=== PATIENT | female | born 1940 | race Caucasian/White ===

== ENCOUNTER → 2017-12-07 | Outpatient (CLI) | payer OTHER ==
[~2017-12-07] MED LIST: ACCUNEB SO1.25 MG/1 INH; ADULT LOW DOSE81 MG PO; ADVAIR HFA115 MCG/21 INH; ALLOPURINOL 10100 M1 PO; ASPIR 8181 MG PO; ASPIRIN325 PO; ATIVAN0.5 MG PO; AVELOX 400 MG400 MG PO; BENADRYL25 MG PO; BLOOD GLUCOSE1 EAC2; CENTRUM SILVER1 EAC4 PO; COLACE100 MG PO; EFFEXOR XR75 MG PO; ERYTHROMYCIN250 MG PO; FEVERALL650 MG RECTAL; FLONASE; HYDROCODONE-AP1 EAC6 PO; I-CAPS AREDS S1 EACH PO; ICAPS TABLET1 EACH PO; INDOMETHACIN 2525 MG PO; LEVOTHYROXINE0.05 MG PO; LIPITOR10 MG PO; LOPRESSOR 50 MG50 M1 PO; LOPRESSOR50 PO; LOVASTATIN 20 M20 MG PO; MEDROLDOSEPACK PO; METAMUCIL PAC1 UDPKT PO; MEVACOR40 MG PO; MILK OF MA2400 MG/10 PO; MOBIC15 MG PO; NEURONTIN 300300 M1 PO; NORCO 5-325 TA1 EACH PO; OMEPRAZOLE20 M2 PO; OMEPRAZOLE20 MG PO; ONDANSETRON HCL4 M2 PO; OXYBUTYNIN 5 MG5 M1 PO; OXYBUTYNIN 5 MG5 M2 PO; PROAIR HFA8.5 GM; PROAIR HFA8.5 GM IH; ROBAXIN 750 MG750 MG PO; ROXICODONE5 M2 PO; SINGULAIR 10 MG10 M1 PO; SONATA10 MG PO; SPIRIVA INH; SYMBICORT160 MCG/4. INH; THERAGRAN-M PR1 EAC1 PO; TOPROL XL50 MG PO; TRAMADOL 50 MG50 MG PO; TRANSDERM-SCO1 PATC1 TD; TYLENOL325 MG PO; VENTOLIN HFA 1818 GM INH; VITAMIN D1000 UNI1 PO; VITAMIN D400 UNI1 PO; XARELTO10 MG PO
== END ==
LOC: M.MRI 10:13
DX: M47.817 Spondylosis without myelopathy or radiculopathy, lumbosacral region (principal); M48.061 Spinal stenosis, lumbar region without neurogenic claudication; M51.36 Other intervertebral disc degeneration, lumbar region; M51.37 Other intervertebral disc degeneration, lumbosacral region; M71.38 Other bursal cyst, other site; J43.1 Panlobular emphysema; I10 Essential (primary) hypertension; E03.9 Hypothyroidism, unspecified

== ENCOUNTER → 2017-12-26 | Outpatient (CLI) | payer OTHER ==
--- NOTE | 2017-12-27 07:27 | PAINCON ---
[address] [address] PAIN MANAGEMENT CONSULTATION Name: THANHHUMZA Aimee [id number] Admission: 12/26/17 Attend Phys: Zahraa Warren Discharge: Date of : 39 Report #: [id number] THIS REPORT FOR: //name// CC: Lester Roberts HISTORY OF PRESENT ILLNESS: The patient is a pleasant 77-year-old female. She was seen nearly a year ago in April of 2017 for symptomatic lumbar radiculopathy. Epidural injection at that time afforded excellent relief nearly 90% for several months, pain just gradually began to recur several months ago without antecedent trauma and overuse. Notes pain is primarily low back, left greater than right leg. Denies bowel or bladder continence changes. Does have slight decreased left leg strength. Positive straight leg raise is noted bilaterally. SOCIAL HISTORY: She does not use tobacco products. PHYSICAL EXAMINATION: GENERAL: Otherwise shows 5 feet 2 inches, 194 pounds female and BMI is 35.7 kilograms per meter squared. VITAL SIGNS: Blood pressure 146/63, pulse 50 and respirations 18. Subjective pain score is 8 on a VAS. MUSCULOSKELETAL: Rises from chair using armrest, modestly antalgic gait. Lumbar flexion is limited. Again, a slight decrease left leg strength to hip flexion, plantar flexion and lower extremity flexion. Positive straight leg raise bilaterally, left greater than right at 30 degrees. RADIOLOGICAL DATA: Reviewed diagnostic findings, she has a new MRI from 12/07/2017 (compared to prior study 12/08/2015 two years to the date). Does note progression of L3-L4 facet joint changes and facet hypertrophy, there is also a small disk extrusion at L4-L5, narrowing the canal to 8 mm, hypertrophic facet changes resulting in bilateral neural foraminal stenosis, left greater than right. All the findings are somewhat similar the disk protrusion is more prominent on this study. L5-S1 similarly notes hypertrophic facet changes. ASSESSMENT: Symptomatic lumbar radiculopathy by clinical exam and history secondary to spinal stenosis since the patient's symptoms have recurred without antecedent trauma, had good relief with an injection greater than a year ago. Reviewed diagnostic findings including MRI from earlier this month. RECOMMENDATIONS: 1. Epidural injection under fluoroscopy today. 2. Continue nonsteroidal anti-inflammatory agents. 3. Follow up in 4 weeks for reevaluation. Consideration for referral to physical therapy if indicated[place] [address] PAIN MANAGEMENT CONSULTATION Name: HUMZA LAW Aimee Room: [facility]#: [id number] Admission: 12/26/17 Attend Phys: Zahraa Warren Discharge: Date of : 39 Report #: [id number] PROCEDURE: Lumbar epidural injection under fluoroscopy. DESCRIPTION OF PROCEDURE NOTE: After both written and informed consent to include risk of spinal cord damage, increased pain, weakness and dural puncture, the patient was taken to the fluoroscopy suite, placed in the prone position. After sterile prep and drape, a skin wheal with lidocaine was raised. A 22-gauge epidural Tuohy needle was inserted in the midline at L4-L5 with good loss to resistance. Negative aspiration for cerebrospinal fluid or blood was noted. Then 1 mL of Omnipaque under biplanar fluoroscopy showed good spread within the epidural space. This was followed with 80 mg of triamcinolone plus 1 mL of 1.5% preservative-free Xylocaine, 0.5 mL Xylocaine was then injected to flush the needle; it was removed. The patient was monitored for an appropriate period of time and discharged in good and stable condition. <ELECTRONICALLY SIGNED> By: Chris Roberts DO 12/27/17 0727 1301 2020Vinkelechi Roberts DO /nt
== END | disposition home or self-care (01) ==
LOC: M.PC 05:04
DX: M54.16 Radiculopathy, lumbar region (principal); M48.061 Spinal stenosis, lumbar region without neurogenic claudication; Z98.890 Other specified postprocedural states; G89.29 Other chronic pain; Z88.8 Allergy status to other drugs, medicaments and biological substances; Z79.899 Other long term (current) drug therapy; Z79.82 Long term (current) use of aspirin

== ENCOUNTER → 2018-08-16 | Outpatient (CLI) | payer OTHER | LOC: M.NUC 08-07 10:55 | DX: K31.84 Gastroparesis (principal); D47.3 Essential (hemorrhagic) thrombocythemia; Z88.8 Allergy status to other drugs, medicaments and biological substances; Z88.5 Allergy status to narcotic agent; Z88.1 Allergy status to other antibiotic agents ==

== ENCOUNTER → 2018-09-05 | Outpatient (CLI) | payer OTHER | LOC: M.RAD 08:19 | DX: Z12.31 Encounter for screening mammogram for malignant neoplasm of breast (principal) ==

== ENCOUNTER → 2018-09-12 | Outpatient (CLI) | payer OTHER | LOC: M.RAD 09-09 10:48 | DX: N63.11 Unspecified lump in the right breast, upper outer quadrant (principal); N64.89 Other specified disorders of breast ==

== ENCOUNTER → 2018-09-17 | Outpatient (CLI) | payer OTHER ==
--- NOTE | 2018-09-24 12:05 | PATH ---
[address] [address] PATHOLOGY RPT PROCEDURE Name: HUMZA WHITLOCK Room: [facility] Romero#: [id number] Admission: 09/17/18 Date of : 39 Discharge: Report #: [id number] Path Case #: [id number] [facility] Accession Number: [id number] . 01 Material submitted: . RIGHT BREAST 10:00, 2 CMFN . 01 Clinical history: . 1.04 x 0.89 x 0.38, 10:00, 2 cm from nipple, right breast . 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 SEE COMMENT. (MARCO ANTONIO:pit 09/20/2018) QTP/09/20/2018 . 02 Comment: Specimen type: Image guided core biopsies Tumor site: Right breast, 10:00, 2 cm from nipple Tumor quantitation: Approximately 50% of submitted tissues Histologic type: Infiltrating ductal carcinoma with prominent lobular features Histologic grade: II of III LVSI: Not identified Microcalcifications: Identified in invasive tumor and non-neoplastic tissues, including medial calcification of blood vessel Markers: Breast tumor profile pending Block: A2. . The tumor infiltrates throughout in sheets, cords, and single cells typical of that also seen with lobular carcinoma including invasion between individual adipocytes and there is no DCIS or LCIS identified. Properly controlled immunohistochemical studies performed on A1 show the neoplastic cells to have the following results: . CK7: Strong positive E-cadherin: Strong positive High molecular weight keratin: Strong positive Bata catenin: Membranous positive . This tumor is difficult to classify and shows some conflicting immunohistochemical results which favor ductal carcinoma with lobular features however the differential includes infiltrating lobular carcinoma with aberrant E-cadherin expression. . Breast tumor profile studies are pending on block A2 and will be the subject [place] [address] PATHOLOGY RPT PROCEDURE Name: THANHHUMZA GELACIO Room: [facility] Heather#: [id number] Admission: 09/17/18 Date of : 39 Discharge: Report #: [id number] Path Case #: [id number] . Reviewed with Dr. Latrice Franz who agrees with the diagnosis. Preliminary findings relayed to Maritza Howard ([facility] Breast Navigator) at approximately 13:15 on 09/18/2018. (MARCO ANTONIO:pit 09/20/2018) . 02 Addendum: . Special studies report received from [facility], [address] [place] [address], [address], [place], [address], on case [id number], labeled with their number [id number], dated 09/23/2018. . Breast/Prognostic Marker Analysis . Specimen Site: Rt Breast, bx, Breast mass Specimen ID #: [id number] . ER (Estrogen Receptor) Present/Positive Percent: 80.00% Analysis: Manual Comments: Staining Intensity: Strong . TX (Progesterone Receptor) Present/Positive Percent: 25.00% Analysis: Manual Comments: Staining Intensity: Strong . HER2 Not Over-Expressed Score: 0 Analysis: Manual . Ki-67 Borderline Proliferation Percent: 20.00% Analysis: Manual . Time to Fixation (Cold Ischemic Time): 12 minutes Duration of Fixation: Not Provided Type of Fixative: 10% Neutral Buffered Formalin . at [facility]. Shadi Chen MD Surgical Pathologist . Methodology The HER2 Receptor protein expression [place] [address] PATHOLOGY RPT PROCEDURE Name: HUMZA WHITLOCK Room: [facility] Romero#: [id number] Admission: 09/17/18 Date of : 39 Discharge: Report #: [id number] Path Case #: [id number] rabbit monoclonal antibody (clone [id number]). This assay is used for diagnostic determination of the HER2 protein over-expression in paraffin embedded, formalin fixed breast cancer tissue on the Geary Benchmark. The specimen is processed using a polymer detection system. The membrane staining of the tumor is determined either by manual score or image analysis. This antibody is intended for in vitro diagnostic use. The score is reported as per package insert; 0, 1+, 2+, and 3+. This test is used for clinical purposes. . A rabbit monoclonal antibody (clone SP1) that recognized the Estrogen Receptor is used to perform immunohistochemistry on routinely fixed (formalin) paraffin embedded tissue on the Geary Benchmark. The specimen is processed using a polymer detection system. The percentage of stained tumor nuclei is determined either manually or by image analysis. This test is intended for in vitro diagnostic use. This test is used for clinical purposes. . A rabbit monoclonal antibody (clone 1E2) that recognized the Progesterone Receptor is used to perform immunohistochemistry on routinely fixed (formalin) paraffin embedded tissue on the Geary Benchmark. The specimen is processed using a polymer detection system. The percentage of stained tumor nuclei is determined either manually or by image analysis. This test is intended for in vitro diagnostic use. This test is used for clinical purposes. . A rabbit monoclonal antibody (clone 30-9) that recognized Ki67 is used to perform immunohistochemistry on routinely fixed (formalin) paraffin embedded tissue on the [employer] Benchmark. The specimen is processed using a polymer detection system. The percentage of stained tumor nuclei is determined either manually or by image analysis. This test is intended for in vitro diagnostic use. This test is used for clinical purposes. . Intended Use: This antibody is intended for in vitro diagnostic (IVD) use. HER2 (4B5) is a rabbit monoclonal antibody intended for the semi-quantitative detection of HER2 antigen in sections of formalin-fixed, paraffin embedded normal and neoplastic tissue. . This antibody is intended for in vitro diagnostic (IVD) use. Estrogen Receptor (ER) (SP1) is a rabbit monoclonal antibody (IgG) that is intended for the qualitative detection of estrogen receptor (ER) antigen in sections of formalin-fixed, paraffin-embedded tissue. ER is a rabbit monoclonal antibody that recognizes human estrogen receptor alpha. . This antibody is intended for in vitro diagnostic (IVD) use. Progesterone Receptor (TX) (1E2) is a rabbit monoclonal antibody (IgG) that is intended for the qualitative detection of progesterone receptor (TX) antigen in sections of formalin fixed, paraffin embedded tissue. TX is a rabbit monoclonal antibody that recognizes the [place] [address] PATHOLOGY RPT PROCEDURE Name: HUMZA WHITLOCK Room: [facility]#: [id number] Admission: 09/17/18 Date of : 39 Discharge: Report #: [id number] Path Case #: [id number] progesterone receptor. . This antibody is intended for in vitro diagnostic (IVD) use. Ki-67 (30-9) is a rabbit monoclonal antibody (IgG) directed against C-terminal portion of Ki-67 antigen. Staining for Ki-67 can be used to aid in assessing the proliferative activity of normal and neoplastic tissue. Ki-67 is a nuclear protein expressed in proliferating cells. During the cell cycle, the Ki-67 antigen is present in the G1, S, G2 and M phase but is absent in the G0 (quiescent phase). . . Disclaimer: This Test was performed by [employer]. at [address], [address]. . [facility] is a business unit of [employer] a wholly-owned subsidiary of [employer]. . This assay has not been validated on decalcified tissues. Results should be interpreted with caution if this specimen was decalcified given the likelihood of false negativity on decalcified specimens. . Any image(s) that accompany this report is/are a automobile rental representative image(s) only and should not be used to render a diagnosis. . This interpretation is contingent on the specimen and the clinical information received. . For any special tests/stains performed, known positive cells or tissues are tested with each marker and examined to ensure positivity. Positive and negative internal controls, if present, react appropriately. . This analysis is an adjunct to the evaluation of the referring physician and does not represent a final diagnosis. . The immunohistochemistry tests performed at [facility]. were validated on tissue fixed in 10% neutral buffered formalin. The performance characteristics of the tests performed on tissue processed in other fixatives is not known. . HER2 testing at [employer] is performed in compliance with the 2018 updated ASCO/CAP Clinical Practice Guideline Focused Update. If the result is EQUIVOCAL (2+), it must be confirmed by an alternative assay such as FISH or Dual JOVAN. REF: Juan MACEDO, ARIANNA Stern et al: Human Epidermal Growth Factor Receptor 2 Testing in Breast Cancer: ASCO/CAP Clinical Practice Guideline Focused Update. J Clin Oncol 36:4386-1061, 2018. [place] [address] PATHOLOGY RPT PROCEDURE Name: THANHHUMZAWILLY BRIZUELA Room: [facility] Romero#: [id number] Admission: 09/17/18 Date of : 39 Discharge: Report #: [id number] Path Case #: [id number] HER2 and ER/TX ASCO/CAP guidelines require fixation in neutral buffered formalin for a minimum of 6 and a maximum of 72 hours. Fixation times less than 6 hours may not adequately preserve cell proteins. Fixation times longer than 72 hours may cause excess cross-linking of proteins reducing the antigen available for staining. Either scenario can cause reduced staining; hence false negative results are possible and should be considered for these situations if the HER2 IHC score is less than 3+ or ER or TX is negative (no staining or <1% positive). It is recommended that specimens fixed longer than 72 hours with HER2 IHC scores less than 3+ be confirmed by HER2 FISH or Dual JOVAN. The time from biopsy/excision to fixation in formalin (cold ischemic time) must be less than 1 hour. Time to fixation (cold ischemic time) greater than 1 hour should be interpreted with caution. HER2 testing, mainly HER2 by FISH, is particularly vulnerable since excessive cold ischemic time results in preferential loss of HER2 probe signals that may lead to false negative results. . SCORE STAINING PATTERN IN TUMOR CELLS INTERPRETATION RESULTS 0 No staining observed or incomplete, faint membrane staining in less than or equal to 10% of tumor cells. Negative 1+ Incomplete, faint membrane staining in greater than 10% of tumor cells. Negative 2+ Incomplete and/or weak/moderate circumferential membrane staining in greater than 10% of the invasive tumor cells or complete, circumferential, intense alternative assay staining in less than or equal to 10% of invasive tumor cells. Equivocal* *Must be confirmed by alternative assay (IHC/FISH/Dual JOVAN) 3+ Intense, complete membrane staining in greater than 10% of tumor cells. Positive . A complete copy of the report is on file. . Professional and Technical services performed by [facility]. at [address], [place] [address], [place] [address]. . (AMJ 09/24/2018) . AZJ/09/24/2018 Addendum Electronically Signed by Delbert Friend MD, Pathologist . 02 Electronically signed: . Delbert Friend MD, Pathologist NPI- [id number] [place] [address] PATHOLOGY RPT PROCEDURE Name: HUMZA WHITLOCK Room: [facility].#: [id number] Admission: 09/17/18 Date of : 39 Discharge: Report #: [id number] Path Case #: [id number] . 01 Gross description: . The specimen is received in formalin, labeled "Humza Whitlock, right breast 10:00, 2 cm from nipple", are multiple fibrofatty cores and its fragments measuring 2.5 x 2.0 x 0.7 cm in aggregate. The specimen is entirely submitted in A1-A3. Specimen excised at: 0934 on 09/17/18, placed in formalin at: 0946 on 09/17/18, formalin exposure: Approximately 14 hours. (SWS; 09/17/2018) SHS/SHS . 02 Pathologist provided ICD-10: C50.911 . 02 CPT . 081363, A86840, A52813 Specimen Comment: A courtesy copy of this report has been sent to Specimen Comment: [phone], , . Specimen Comment: Report sent to ,DR HOWARD / DR LONGORIA Specimen Comment: A duplicate report has been generated due to demographic updates. Performed at: 01 [facility] [address], [place], [place] [id number] MD Anthony Wiley MD Phone: [phone] Performed at: 02 [facility] [address], [place], [place] [id number] MD Delbert Friend MD Phone: [phone]
== END | disposition home or self-care (01) ==
LOC: M.ULTRA 08:18
DX: C50.911 Malignant neoplasm of unspecified site of right female breast (principal); Z88.8 Allergy status to other drugs, medicaments and biological substances; Z88.6 Allergy status to analgesic agent; Z79.899 Other long term (current) drug therapy; Z79.82 Long term (current) use of aspirin; Z87.19 Personal history of other diseases of the digestive system

== ENCOUNTER → 2018-09-27 | Outpatient (CLI) | payer OTHER ==
[2018-09-27 10:08] LABS: CREATININE 1.3 mg/dL (0.6-1.3)
== END ==
LOC: M.MRI 08:00 → M.LAB 08:00 → M.MRI 09:00 → M.LAB 09:37 → M.MRI 09:37
PROVIDERS: Surgery
DX: C50.411 Malignant neoplasm of upper-outer quadrant of right female breast (principal)

== ENCOUNTER → 2018-10-01 | Outpatient (CLI) | payer OTHER ==
[2018-10-01 07:48] LABS: ABSOLUTE BASOPHILS 0.1 thou/uL (0.0-0.2); ABSOLUTE EOSINOPHILS 0.3 thou/uL (0.0-0.7); ABSOLUTE LYMPHOCYTES 1.4 thou/uL (0.8-5.3); ABSOLUTE MONOCYTES 0.7 thou/uL (0.0-1.2); ABSOLUTE NEUTROPHILS 4.5 thou/uL (1.6-8.1); BASOPHILS 0.9 %; EOSINOPHILS 4.8 %; HEMATOCRIT 41.3 % (37.0-47.0); HEMOGLOBIN 13.7 gm/dL (12.0-15.0); LYMPHOCYTES 19.6 %; MCH 30.5 pg (26.0-34.0); MCHC 33.1 g/dL (28.0-37.0); MONOCYTES 9.6 %; MPV 8.2 fl. (7.2-11.1); NUCLEATED RBCS 0 /100WBC; PLATELET COUNT* 319 thou/uL (150-400); POLYS 65.1 %; RBC 4.48 mil/uL (4.20-5.00); RDW-CV 14.6 % (10.5-14.5)
[2018-10-01 08:02] LABS: ALBUMIN 3.4 g/dL (3.4-5.0); CALCIUM 9.3 mg/dL (8.5-10.1); CREATININE 1.2 mg/dL (0.6-1.3); POTASSIUM 4.6 mmol/L (3.5-5.1); TOTAL BILIRUBIN 0.4 mg/dL (<0.1-1.0); TOTAL PROTEIN 7.2 g/dL (6.4-8.2)
[2018-10-01 08:53] LABS: ESR (SEDRATE) 25 mm/hr (0-30)
== END ==
LOC: M.ULTRA 09-24 09:24 → M.LAB 07:00 → M.ULTRA 07:28 → M.LAB 07:45 → M.ULTRA 07:45
PROVIDERS: Internal Medicine Gastroenterology
DX: N20.0 Calculus of kidney (principal); N28.1 Cyst of kidney, acquired; E03.9 Hypothyroidism, unspecified; Z90.49 Acquired absence of other specified parts of digestive tract; Z90.5 Acquired absence of kidney; Z79.899 Other long term (current) drug therapy

== ENCOUNTER 2018-10-14 05:55 | Inpatient (IN) | payer OTHER ==
[~2018-10-14] VITALS: Ht 157.5 cm; Wt 93.4 kg
--- NOTE | ~2018-10-14 | H ---
[address] [address] HISTORY AND PHYSICAL Name: HUMZA LAW Room: [address] M.R.#: [id number] Admission: 10/14/18 Attend Phys: Shaylee Smith MD Discharge: 10/15/18 Date of : 39 Report #: [id number] THIS REPORT FOR: //name// Please refer to the History and Physical performed in the physician's office. By: 0648Medical Records Staff EVONNE /RYAN
[2018-10-14 06:51] LABS: ALBUMIN 3.5 g/dL (3.4-5.0); CALCIUM 9.2 mg/dL (8.5-10.1); CREATININE 1.3 mg/dL (0.6-1.3); POTASSIUM 4.5 mmol/L (3.5-5.1); TOTAL BILIRUBIN 0.5 mg/dL (<0.1-1.0); TOTAL PROTEIN 7.2 g/dL (6.4-8.2)
--- NOTE | 2018-10-14 11:19 | EKG ---
[place] [address] ELECTROCARDIOGRAM REPORT Name: HUMZA LAW Room: [facility]#: [id number] Admission: 10/14/18 Attend Phys: Shaylee Smith MD Discharge: Date of : 39 Report #: [id number] THIS REPORT FOR: //name// [facility] Test Date: 2018-10-14 Test Time: 07:23:09 Pat Name: HUMZA LAW Department: Room: Gender: F Radio Electronics Technician: [facility] : 1940 Requested By: Shaylee Smith Order Number: [id number] Reading MD: Darren Carroll Measurements Intervals [place] Rate: 50 P: 111 ID: [id number] QRS: 50 QRSD: 96 T: 58 QT: 426 QTc: 389 Interpretive Statements Sinus rhythm with sinus arrhythmia Low voltage, precordial leads Compared to ECG 11/17/2014 10:22:59 Low QRS voltage now present Electronically Signed On 10-14-2018 11:16:46 CDT by Darren Carroll [email or web address] <ELECTRONICALLY SIGNED> By: Darren Carroll MD, [facility] 10/14/18 1116 0723 0723 Darren Carroll MD, FAC /EPI
[2018-10-14 20:00] VITALS: BP 134/61
[2018-10-15 00:30] VITALS: BP 129/38
[2018-10-15 04:00] VITALS: BP 112/61
[2018-10-15 05:44] LABS: HEMATOCRIT 34.9 % (37.0-47.0); HEMOGLOBIN 11.4 gm/dL (12.0-15.0); MCH 30.5 pg (26.0-34.0); MCHC 32.8 g/dL (28.0-37.0); MCV 92.9 fL (80.0-100.0); MPV 8.9 fl. (7.2-11.1); RBC 3.75 mil/uL (4.20-5.00); RDW-CV 14.7 % (10.5-14.5); WBC 12.2 thou/uL (4.0-11.0)
[2018-10-15 05:47] LABS: CALCIUM 8.6 mg/dL (8.5-10.1); CREATININE 1.5 mg/dL (0.6-1.3); POTASSIUM 4.8 mmol/L (3.5-5.1)
[2018-10-15 07:50] VITALS: BP 142/46
[2018-10-15] MEDS ORDERED: NORCO 5-325 TA1 EACH PO (08:48)
--- NOTE | 2018-10-15 08:55 | OP ---
[address] [address] OPERATIVE REPORT Name: THANHHUMZAWILLY BRIZUELA Room: [address] M.R.#: [id number] Admission: 10/14/18 Attend Phys: Shaylee Smith MD Discharge: Date of : 39 Report #: [id number] THIS REPORT FOR: //name// CC: Lester Smith DATE OF SERVICE: 10/14/2018 PREOPERATIVE DIAGNOSIS: Right breast cancer. POSTOPERATIVE DIAGNOSIS: Right breast cancer. PROCEDURE: Right simple mastectomy. SURGEON: Shaylee Smith MD BIOMATHEMATICIAN: MARGAUX Madden. ANESTHESIA: General anesthesia. ESTIMATED BLOOD LOSS: 50 mL. COMPLICATIONS: None. DRAINS: Round fully fluted EMMA x 1. FINDINGS: No tracking to the axilla on preoperative lymphoscintigraphy. DISPOSITION: Stable to PACU. INDICATIONS: The patient is a 77-year-old female with a history of right breast cancer in 2001, status post lumpectomy, radiation, chemotherapy and 2 years of endocrine therapy, who now has a newly diagnosed right breast cancer. Imaging on 09/05/2018 and 09/12/2018 show a 4 mm nodule at the 10 o'clock right breast 2 cm from nipple. No comment on axillary lymph nodes. A biopsy on 09/17/2018 showed grade 2 invasive ductal carcinoma, ER positive at 80%, ND 25% positive, HER-2 negative, Ki-67 of 20%. MRI on 09/27/2018 confirmed the biopsy site without suspicious enhancement and normal appearing nodes. The patient, despite recommendations that she would be an appropriate candidate for lumpectomy, strongly desired mastectomy. Risks and benefits for such were discussed with the patient and delineated in the H and P. We also discussed that given her previous axillary dissection, I felt that it would be unlikely that she would actually have tracking to the axilla. Her axillary lymph nodes looked normal on MRI. Therefore, we proceeded with a lymphoscintigraphy the morning of surgery, there was no tracking to the axilla on the delayed images. We discussed that in the operating room I would look in the axilla with the Montverde probe, [place] [address] OPERATIVE REPORT Name: NORMADEBBYHUMZA GELACIO Room: [address] ..#: [id number] Admission: 10/14/18 Attend Phys: Shaylee Smith MD Discharge: Date of : 39 Report #: [id number] inject blue dye and unless there were any tracer that seemed very superficial I would not proceed with axillary dissection. This had also previously been discussed with her medical oncologist. Risks and benefits for the above procedure were discussed with the patient, delineated in the H and P and she agreed to proceed. PROCEDURE IN DETAIL: The patient was brought to the operating room after informed consent had been obtained. She was placed under general anesthesia in the supine position with her right arm extended. Her right breast and axilla were prepped and draped in normal sterile manner. The skin markings were marked out with a marking pen. The skin incision for the inferior skin flap was incised with a knife. This was deepened to the subcutaneous tissues using the Bovie electrocautery. The inferior skin flap was created inferiorly with the Bovie electrocautery, inferiorly toward the level of the serratus muscle, medially toward the sternal border, and laterally toward the latissimus muscle. Attention was then turned to the superior flap. A skin incision was made. This was deepened into the subcutaneous tissues using the Bovie electrocautery. The superior skin flap was then created superiorly toward the level of the clavicle with the same medial and lateral borders. The breast tissue was then removed from the underlying pectoralis muscle to include the pectoralis fascia in a superior to inferior and medial to lateral manner using the Bovie electrocautery. All of this dissection was difficult due to her previous breast surgery, axillary dissection and radiation. Vascular pedicles were ligated with 3-0 silk ligatures when encountered. Once the breast tissue was removed laterally, was reflected laterally. The lateral attachments were divided with the Bovie electrocautery and ligated with silk ligatures as needed. The breast once completely removed was labeled for orientation purposes. The axillary tail was interrogated with the Vianey probe to see if there was any lymph node identified in this region and this was then handed off for permanent specimen. The axilla itself was then interrogated with the Montverde probe. There was no radiotracer uptake obvious in the axilla. The breast flaps were then copiously irrigated with normal saline. Attention was turned to hemostasis; hemostasis was obtained with assistance of the Bovie electrocautery. Once it was felt to be adequately hemostatic, a round fully fluted EMMA drain was placed in the lower skin flap. This was secured in place with a 3-0 nylon suture. The excess skin in the region of the axilla was then excised for more cosmetic closure to avoid a significant dog ear. The skin edges were cauterized with the Bovie electrocautery. The deep dermal layers were then closed with interrupted 3-0 Vicryl suture. Skin was closed with 4-0 Monocryl in a subcuticular manner. The wound was covered with Steri-Strip dressings. The drain was activated. The sponge, lap and needle counts were correct x 2 at the end of procedure. She was transferred to recovery in stable condition. <ELECTRONICALLY SIGNED> By: Shaylee Smith MD 10/15/18 0855 1227 1245Mindot Smith MD /nt
[2018-10-15 09:35] VITALS: BP 142/46
[2018-10-15 10:29] VITALS: BP 142/46
--- NOTE | 2018-10-15 10:29 | NUR ---
PT DISHCRAGE, CARE NOTES, AND PRESCRIPTIONS GIVEN. IV REMOVED. OT WORKED WITH PT BEFORE DISCHARGE. PT DENIED ANY FURTHER QUESTIONS OR CONCERNS. PT HAS OWN HOME WALKER. PT LEFT VIA WHEELCHAIR WITH NURSING STAFF TO HOME.
--- NOTE | 2018-10-17 17:06 | PATH ---
[address] [address] PATHOLOGY RPT PROCEDURE Name: THANHHUMZAWILLY BRIZUELA Room: [address] M.R.#: [id number] Admission: 10/14/18 Date of : 38 Discharge: 10/15/18 Report #: [id number] Path Case #: [id number] [facility] Accession Number: [id number] . 01 Material submitted: . breast - R BREAST CANCER W/ PREV LUMP, STITCH CLAIR LAT TAIL W/ EXCESS SKIN LAT FLAP. Modifiers: right . 01 Clinician provided ICD-10: C50.411 . 01 Clinical history: . Right breast cancer . 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 SEE COMMENT. . (MARCO ANTONIO:alvaro; 10/17/2018) QLM/10/17/2018 . 02 Comment: Surgical Pathology Cancer Case Summary . INVASIVE CARCINOMA OF THE BREAST: Resection . . Procedure Other (specify): Simple mastectomy Specimen Laterality Right . Tumor Site: Invasive Carcinoma + Upper outer quadrant + Lower outer quadrant . Tumor Size Greatest dimension of largest invasive focus >1 mm: 10 mm . Histologic Type Other histologic type not listed: Infiltrating ductal carcinoma with lobular features . Histologic Grade (Natalio Histologic Score) Glandular (Acinar)/[place] [address] PATHOLOGY RPT PROCEDURE Name: HUMZA WHITLOCK Room: [address] IN .R.#: [id number] Admission: 10/14/18 Date of : 38 Discharge: 10/15/18 Report #: [id number] Path Case #: [id number] Score 3 (<10% of tumor area forming glandular/tubular structures) . Nuclear Pleomorphism Score 2 (cells larger than normal with open vesicular nuclei, visible nucleoli, and moderate variability in both size and shape) . Mitotic Rate Score 2 . . Overall Grade Grade 2 (scores of 6 or 7) . Tumor Focality + Single focus of invasive carcinoma . Ductal Carcinoma In Situ (DCIS) Not identified . Invasive Carcinoma Margins Cannot be assessed because relationship of identified residual tumor to closest margins not reliably determined grossly and not seen histologically, however, no closer than 13 mm . . Regional Lymph Nodes No lymph nodes submitted or found . . Treatment Effect + No known presurgical therapy . Lymphovascular Invasion Not identified . Dermal Lymphovascular Invasion Not identified . PATHOLOGIC STAGE CLASSIFICATION (pTNM, AJCC 8th Edition) Note: Reporting of pT, pN, and (when applicable) pM categories is based on information available to the pathologist at the time the report is issued. Assignment of Pathologic Prognostic Stage Group is the responsibility of the managing physician and not the pathologist. . Primary Tumor (pT) Invasive Carcinoma pT1b:Tumor >5 mm but <or=10 mm in greatest dimension . Regional Lymph Nodes (pN) pNX:Regional [place] [address] PATHOLOGY RPT PROCEDURE Name: HUMZA WHITLOCK Room: [address] IN ..#: [id number] Admission: 10/14/18 Date of : 38 Discharge: 10/15/18 Report #: [id number] Path Case #: [id number] . Additional Pathologic Findings + Focal atypical ductal hyperplasia with calcifications . Breast Biomarker Testing Performed Previously on Right Breast 10:00, 2 cm from nipple, image-guided core biopsies ([id number]): . Estrogen Receptor (ER) + Positive 80% . Progesterone Receptor (PgR) + Positive 25% . HER2 (by immunohistochemistry) + Not overexpressed / 0 . Ki-67 + 20% . Microcalcifications + Present in non-neoplastic tissue . Other: Medial calcification of blood vessels . Clinical History + Prior right breast 10:00, 2 cm from nipple image-guided core biopsy showing infiltrating ductal adenocarcinoma with prominent lobular features, intermediate grade, spanning 10 mm ([id number]) . . Comment Foci of residual infiltrating tumor are seen in random sections taken from around the biopsy site (A3, A5, A10 and A11) and shows similar lobular features, although it infiltrates in a relatively greater proportion of nests with scattered vague tubule formation more typical of ductal differentiation. . . . . . (MARCO ANTONIO:mml; 10/17/2018) . 02 Electronically signed: . Delbert Friend MD, Pathologist NPI- [id number] . 01 Gross description: . The specimen is received in formalin, labeled "Humza Whitlock, [place] [address] PATHOLOGY RPT PROCEDURE Name: HUMZA WHITLOCK GUY Room: [address] IN [facility].#: [id number] Admission: 10/14/18 Date of : 38 Discharge: 10/15/18 Report #: [id number] Path Case #: [id number] breast and excess flap" and consists of a 925 g mastectomy specimen oriented with a suture designating the "lateral tail." The breast tissue measures 21.9 cm L-M, 18.0 cm S-I, and 4.8 cm A-P. The anterior skin ellipse measures 23.2 x 9.3 cm with a 4.8 x 3.5 cm everted nipple areolar complex. The skin is pink-irene and grossly unremarkable. Posterior is inked black, superior blue, inferior green and it is sectioned from lateral to medial and placed back in formalin for overnight fixation. Also received is a segment of unremarkable pink-irene skin with underlying yellow-orange tissue measuring 8.8 x 5.8 x 1.5 cm. (SDY; 10/14/2018) . After overnight fixation a solid area showing evidence of previous biopsy/excision changes and scar tissue is present in the upper outer and lower outer quadrants measuring 4.0 x 3.3 x 2.4 cm and extending from the margins as follows: 1.3 cm posterior, 0.3 cm superior, 4.0 cm inferior, and 2.0 cm from nipple. The aspect of the solid area approaching the superior margin is scar tissue/dense fibrous tissue. Further sectioning through this area reveals two white plastic beads/biopsy markers. The rest of the breast parenchyma consists of yellow-orange lobulated tissue with approximately 15-20% fibrous tissue. No additional masses or lesions are identified. Sectioning through the additionally received segment of skin and underlying tissue reveals no gross lesions. Jacquard Lace Weaver sections are submitted as follows: . A1: Nipple A2: Scar/fibrous tissue approaching superior margin A3-A13: Entire area of previous biopsy changes A14: Nearest inferior and deep margins, perpendicular A15: Lateral to previous biopsy changes A16: Medial to previous biopsy changes A17: Additional upper outer quadrant A18: Additional lower outer quadrant A19: Upper inner quadrant A20: Lower inner quadrant A21: Additionally received segment, full thickness . The specimen was collected at 11:10 AM on 10/14/18 and placed in formalin are 12:30 PM. The cold ischemic time is 1 hour and 20 minutes and the total formalin fixation time is greater than 6 hours but less than 72 hours. (SDY; 10/15/2018) SYU/SYU . 02 Pathologist provided ICD-10: C50.411, C50.511, Z17.0 . 02 CPT . [id number] Specimen Comment: A courtesy copy [place] [address] PATHOLOGY RPT PROCEDURE Name: HUMZA WHITLOCK Room: [address] DIS IN M.R.#: [id number] Admission: 10/14/18 Date of : 38 Discharge: 10/15/18 Report #: [id number] Path Case #: [id number] Specimen Comment: [phone], . Specimen Comment: Report sent to / DR LONGORIA Performed at: 01 [facility] [address], [place], [place] [id number] MD Anthony Wiley MD Phone: [phone] Performed at: [address] [facility] [address] [place] [id number] MD Delbert Friend MD Phone: [phone]
== END 2018-10-15 10:30 | disposition home or self-care (01) | DRG 583 ==
LOC: M.SUR 05:55 → M.NUC 08:00 → EDSTATUS 08:00 → M.ORTHSURG 19:04
PROVIDERS: ADMIT Surgery
PROC: 0HBT0ZZ Excision of Right Breast, Open Approach (ICD-10-PCS; principal; 2018-10-14)
DX: C50.911 Malignant neoplasm of unspecified site of right female breast (principal); Z96.653 Presence of artificial knee joint, bilateral; J44.9 Chronic obstructive pulmonary disease, unspecified; M10.9 Gout, unspecified; I10 Essential (primary) hypertension; K21.9 Gastro-esophageal reflux disease without esophagitis; E78.5 Hyperlipidemia, unspecified; E03.9 Hypothyroidism, unspecified; Z88.5 Allergy status to narcotic agent; Z88.1 Allergy status to other antibiotic agents; Z88.8 Allergy status to other drugs, medicaments and biological substances; Z90.710 Acquired absence of both cervix and uterus; Z90.49 Acquired absence of other specified parts of digestive tract

== ENCOUNTER → 2018-11-22 | Outpatient (CLI) | payer OTHER | END | disposition home or self-care (01) | LOC: M.ULTRA 13:50 | DX: N60.01 Solitary cyst of right breast (principal); M96.843 Postprocedural seroma of a musculoskeletal structure following other procedure; Z85.3 Personal history of malignant neoplasm of breast; J44.9 Chronic obstructive pulmonary disease, unspecified; M19.90 Unspecified osteoarthritis, unspecified site; E78.5 Hyperlipidemia, unspecified; E03.9 Hypothyroidism, unspecified; D64.9 Anemia, unspecified; Z88.8 Allergy status to other drugs, medicaments and biological substances; Z79.82 Long term (current) use of aspirin; Z79.899 Other long term (current) drug therapy; Z98.890 Other specified postprocedural states; Z88.6 Allergy status to analgesic agent ==

== ENCOUNTER → 2018-12-30 | Outpatient (CLI) | payer OTHER | LOC: M.RAD 14:30 | DX: R91.8 Other nonspecific abnormal finding of lung field (principal) ==

== ENCOUNTER 2019-01-15 07:29 | Inpatient (IN) | payer OTHER ==
[~2019-01-15] VITALS: Ht 157.5 cm; Wt 76.7 kg
[~2019-01-15 07:29] MED LIST changes: -LOPRESSOR50 PO; -MOBIC15 MG PO
[2019-01-15 07:32] VITALS: BP 162/59
[2019-01-15 08:14] LABS: ABSOLUTE BASOPHILS 0.1 thou/uL (0.0-0.2); ABSOLUTE EOSINOPHILS 0.3 thou/uL (0.0-0.7); ABSOLUTE LYMPHOCYTES 1.2 thou/uL (0.8-5.3); ABSOLUTE MONOCYTES 1.2 thou/uL (0.0-1.2); ABSOLUTE NEUTROPHILS 7.7 thou/uL (1.6-8.1); BASOPHILS 0.7 %; EOSINOPHILS 2.6 %; HEMATOCRIT 34.2 % (37.0-47.0); HEMOGLOBIN 11.6 gm/dL (12.0-15.0); LYMPHOCYTES 11.9 %; MCH 30.1 pg (26.0-34.0); MCHC 34.1 g/dL (28.0-37.0); MCV 88.5 fL (80.0-100.0); MONOCYTES 11.3 %; MPV 7.9 fl. (7.2-11.1); NUCLEATED RBCS 0 /100WBC; PLATELET COUNT* 550 thou/uL (150-400); POLYS 73.5 %; RBC 3.86 mil/uL (4.20-5.00); RDW-CV 15.7 % (10.5-14.5); WBC 10.4 thou/uL (4.0-11.0)
[2019-01-15 08:24] LABS: ANION GAP 5 mmol/L (7-16); BUN 32 mg/dL (7-18); CALCIUM 10.1 mg/dL (8.5-10.1); CHLORIDE 102 mmol/L (98-107); CO2 28 mmol/L (21-32); CREATININE 1.4 mg/dL (0.6-1.3); GLUCOSE 120 mg/dL (70-99); POTASSIUM 4.9 mmol/L (3.5-5.1); SODIUM 135 mmol/L (136-145)
[2019-01-15 08:35] LABS: ALBUMIN 2.7 g/dL (3.4-5.0); ALKALINE PHOSPHATASE 144 U/L (46-116); NT-PRO BRAIN NAT PEPTIDE 858 pg/mL (<300); SGOT 18 U/L (15-37); SGPT 19 U/L (30-65); TOTAL BILIRUBIN 0.3 mg/dL (<0.1-1.0); TOTAL PROTEIN 7.5 g/dL (6.4-8.2); TROPONIN-I LEVEL <0.06 ng/mL (<0.06)
--- NOTE | 2019-01-15 09:22 | NUR ---
HUMZA NOTIFIED UPON PT RETURN FROM CT. PT CONNECTED TO O2 AND MONITOR
[2019-01-15 11:15] VITALS: BP 100/49
[2019-01-15 12:05] VITALS: BP 136/60
[2019-01-15 16:04] VITALS: BP 126/44
--- NOTE | 2019-01-15 16:47 | NUR ---
PT ADMITTED TO ROOM 224 AROUND 1120 FOR DYSPNEA, COPD EXACERBATION, PNEUMONIA, AND BREAST CANCER. PT DX WITH PNEUMONIA 4 WEEKS AGO. REPORTED FROM ED THAT CHEST XRAY WORST AT THIS TIME. PT WEARING OXYGEN AT 2L/NC. PT DOES NOT WEAR OXYGEN AT HOME. SATS WNL AROUND 98%. PT RECENTLY STOPPED ORAL CHEMOTHERAPY D/T SIDE EFFECTS. PT TO START A NEW CHEMOTHERAPY THIS SUNDAY. LIMB ALERT TO RUE. NO OTHER CONCERNS AT THIS TIME. CLWR. WCTM.
[2019-01-15 17:11] LABS: URINE BILIRUBIN NEGATIVE (Negative); URINE BLOOD NEGATIVE (Negative); URINE CLARITY CLEAR; URINE COLOR YELLOW; URINE GLUCOSE-RANDOM TRACE (Negative); URINE KETONES NEGATIVE (Negative); URINE LEUKOCYTES-REFLEX NEGATIVE (Negative); URINE NITRITE-REFLEX NEGATIVE (Negative); URINE PROTEIN NEGATIVE (Negative); URINE UROBILINOGEN 0.2 E.U./dl (0.2-1.0)
--- NOTE | 2019-01-15 17:18 | EKG ---
[place] [address] ELECTROCARDIOGRAM REPORT Name: HUMZA LAW Room: [address] ADM IN M.R.#: [id number] Admission: 01/15/19 Attend Phys: Kiley Mary MD Discharge: Date of : 38 Report #: [id number] THIS REPORT FOR: //name// [facility] ED Test Date: 2019-01-15 Test Time: 07:37:24 Pat Name: HUMZA LAW Department: Room: [facility] Gender: F Manager Shop: : 1940 Requested By: Eddie Knight Order Number: [id number] MD: Darren Carroll Measurements Intervals [place] Rate: 71 P: 105 FL: 173 QRS: 52 QRSD: 85 T: 58 QT: 358 QTc: 389 Interpretive Statements Sinus rhythm Compared to ECG 10/14/2018 07:23:09 Sinus arrhythmia no longer present Electronically Signed On 01-15-2019 17:18:19 CDT by Darren Carroll [email or web address] <ELECTRONICALLY SIGNED> By: Darren Carroll MD, [facility] 01/15/19 1718 6 6 Darren Carroll MD, FAC /EPI
[2019-01-15 19:54] VITALS: BP 101/62
[2019-01-16 00:30] VITALS: BP 142/68
--- NOTE | 2019-01-16 03:45 | NUR ---
ALERT ORIENTED. UP AD KHOI IN ROOM. O2 AT 2 LITERS NC. ONE EPISOID WHERE O2 WAS OFF. O2 SAT 84% ON RA. PAIN MEDICATION GIVEN HS FOR PAIN IN CHEST FROM COUGHING. PT RESTING WELL THIS SHIFT.
[2019-01-16 04:00] VITALS: BP 146/71
[2019-01-16 08:00] VITALS: BP 150/50
[2019-01-16 08:29] LABS: HEMOGLOBIN 10.5 gm/dL (12.0-15.0); MCH 29.2 pg (26.0-34.0); MCHC 32.9 g/dL (28.0-37.0); MCV 88.9 fL (80.0-100.0); MPV 8.5 fl. (7.2-11.1); NUCLEATED RBCS 0 /100WBC; PLATELET COUNT* 528 thou/uL (150-400); RDW-CV 15.6 % (10.5-14.5); WBC 18.4 thou/uL (4.0-11.0)
[2019-01-16 08:38] LABS: CALCIUM 10.2 mg/dL (8.5-10.1); CREATININE 1.3 mg/dL (0.6-1.3); MAGNESIUM 2.2 mg/dL (1.8-2.4)
[2019-01-16 09:41] LABS: ABSOLUTE LYMPHOCYTES 2.2 thou/uL (0.8-5.3); ABSOLUTE MONOCYTES 1.1 thou/uL (0.0-1.2); ABSOLUTE NEUTROPHILS 15.1 thou/uL (1.6-8.1); PLATELET ESTIMATE INCREASED
[2019-01-16 09:42] LABS: ANISOCYTOSIS 1+; POIKILOCYTOSIS 1+
--- NOTE | 2019-01-16 11:28 | NUR ---
MET WITH PT TO DISCUSS HOME SITUATION/DC PLANNING. PT LIVES ALONE, IS INDEPENDENT AND ACTIVE. HAS WALKER, CANE AND NEBULIZER AND USES THEM NEEDED. WENT TO SNF IN PAST AT [facility] AFTER KNEE SURGERY. HASN'T HAD HH. PT'S DPOA IS HER DTR/[facility]. DENIES NEEDS AT THIS TIME. WILL FOLLOW
[2019-01-16 12:10] VITALS: BP 135/54
--- NOTE | 2019-01-16 12:41 | NUR ---
Nutrition: Pt admitted with dyspnea. H/o COPD, breast ca, GERD, CKD III. Seen for nsg risk 2 points. Pt stated she usually weighed 192#. She lost her 3 yrs ago and doesn't cook for herself as often as she should. She has had a gradual wt loss over time. Currently, 171#. Has had PNA x2 wks. She also stated she drinks Ensure at home - RD ordered for here as well. She doesn't have a bid appetite anymore. She does take a MVI. Her dtr brings groceries over often. Alb 2.7, prealb 18.1, BG 133. Regular diet. Mild risk. Mild wt loss. GOALS: Ensure bid, >60% of meals consumed, gradual wt loss over time.
--- NOTE | 2019-01-16 18:35 | NUR ---
ASSUMED PT CARE AT 0800. AOX4, UP AD KHOI. O2 SAT 90'S 2L NC. TRACING SR ON TELE. DENIES PAIN. PT RECEIVED ANTIBIOTICS. IV ACCESS INTACT. VSS, AM ASSESSMENT CHARTED. MEDS GIVEN PER MAR. HOURLY ROUNDING CALL LIGHT WITHIN REACH. WILL CONTINUE TO MONITOR.
[2019-01-16 20:00] VITALS: BP 147/61
[2019-01-17] VITALS: BP 160/53
[2019-01-17 04:00] VITALS: BP 137/60
--- NOTE | 2019-01-17 05:34 | NUR ---
ASSUMED CARE OF PT AFTER REPORT AT 1930. PT A&OX4. VSS. PHYSICAL ASSESSMENT COMPLETED AND CHARTED. PT ON O2 AT 2L NC. PT TRACING SA ON TELE. PT UP ADLIB TO RESTROOM. PT DENIES ANY PAIN OR SOA. PT ABLE TO SLEEP WELL ON BED. CALL LIGHT WITHIN REACH.
[2019-01-17 05:41] LABS: ABSOLUTE LYMPHOCYTES 1.3 thou/uL (0.8-5.3); ABSOLUTE MONOCYTES 1.2 thou/uL (0.0-1.2); ABSOLUTE NEUTROPHILS 12.4 thou/uL (1.6-8.1); BASOPHILS 0.2 %; HEMATOCRIT 34.3 % (37.0-47.0); HEMOGLOBIN 10.7 gm/dL (12.0-15.0); LYMPHOCYTES 8.9 %; MCHC 31.3 g/dL (28.0-37.0); MCV 89.6 fL (80.0-100.0); MONOCYTES 8.2 %; MPV 7.7 fl. (7.2-11.1); NUCLEATED RBCS 0 /100WBC; PLATELET COUNT* 521 thou/uL (150-400); POLYS 82.7 %; RBC 3.83 mil/uL (4.20-5.00); RDW-CV 15.3 % (10.5-14.5)
[2019-01-17 05:52] LABS: CREATININE 1.1 mg/dL (0.6-1.3); POTASSIUM 5.4 mmol/L (3.5-5.1)
[2019-01-17 08:00] VITALS: BP 152/58
[2019-01-17 12:00] VITALS: BP 168/75
[2019-01-17] MEDS ORDERED: IPRAT-ALBUT 0.5-3 ML INH (12:42)
[2019-01-17] MEDS ORDERED: AZITHROMYCIN 2250 MG PO (12:43)
[2019-01-17] MEDS ORDERED: TOPROL XL50 MG PO (12:43)
[2019-01-17] MEDS ORDERED: LEVOTHYROXINE25 MCG PO (12:44)
[2019-01-17] MEDS ORDERED: CEFDINIR300 MG PO (12:44)
[2019-01-17] MEDS ORDERED: DOK PLUS TABLE1 EACH PO (12:44)
[2019-01-17 16:00] VITALS: BP 146/57
--- NOTE | 2019-01-17 18:12 | NUR ---
ASSUMED PT CARE AT 0800, AOX4, UP AD KHOI. O2 SAT 90'S RA. PT DENIES PAIN. PT HAD CHEST XRAY. LUNG SOUND CLEAR. LAST BM 01/15/19, PT GIVEN LAXATIVE. SAYS IV OK TO LEAVE OUT. ANTIBIOTIC TO PO. VSS, AM ASSESSMENT CHARTED. MEDS GIVEN PER MAR. HOURLY ROUNDING. WILL CONTINUE TO MONITOR
[2019-01-17 20:00] VITALS: BP 165/52
[2019-01-18] VITALS: BP 186/69
[2019-01-18 04:30] VITALS: BP 171/65
[2019-01-18 05:16] LABS: ABSOLUTE LYMPHOCYTES 1.8 thou/uL (0.8-5.3); ABSOLUTE MONOCYTES 1.3 thou/uL (0.0-1.2); ABSOLUTE NEUTROPHILS 7.7 thou/uL (1.6-8.1); BASOPHILS 0.3 %; EOSINOPHILS 0.1 %; HEMATOCRIT 34.2 % (37.0-47.0); HEMOGLOBIN 11.5 gm/dL (12.0-15.0); LYMPHOCYTES 16.8 %; MCH 29.6 pg (26.0-34.0); MCHC 33.7 g/dL (28.0-37.0); MCV 87.8 fL (80.0-100.0); MONOCYTES 11.7 %; MPV 8.1 fl. (7.2-11.1); NUCLEATED RBCS 0 /100WBC; PLATELET COUNT* 512 thou/uL (150-400); POLYS 71.1 %; RBC 3.89 mil/uL (4.20-5.00); RDW-CV 15.6 % (10.5-14.5); WBC 10.8 thou/uL (4.0-11.0)
[2019-01-18 05:47] LABS: CALCIUM 10.6 mg/dL (8.5-10.1); CREATININE 1.2 mg/dL (0.6-1.3); PHOSPHORUS* 3.3 mg/dL (2.5-4.9); POTASSIUM 4.8 mmol/L (3.5-5.1)
--- NOTE | 2019-01-18 07:32 | NUR ---
ASSUMED CARE OF PT AFTER REPORT AT 1930. PT A&OX4. VSS. PHYSICAL ASSESSMENT COMPLETED AND CHARTED. PT ON RA. PT TRACING SR ON TELE. PT UP ADLIB TO RESTROOM. PT DENIES ANY PAIN OR SOA. CALL LIGHT WITHIN REACH.
[2019-01-18 08:00] VITALS: BP 149/68
[2019-01-18] MEDS ORDERED: LEVAQUIN 750 M750 MG PO (11:11)
[2019-01-18] MEDS ORDERED: PREDNISONE 20 M20 MG PO (11:27)
[2019-01-18 11:56] VITALS: BP 149/68
[2019-01-18] MEDS ORDERED: MOBIC15 MG PO (12:08)
[2019-01-18] MEDS ORDERED: LOPRESSOR50 PO (12:12)
--- NOTE | 2019-01-18 13:05 | NUR ---
DISCHARGED PLAN DISCUSSED WITH THE PATIENT. VSS, AM ASSESSMENT CHARTED, MEDS GIVEN PER MAR TELE REMOVED. MEDICATION PACKET SCRIPT/GIVEN. REMINDED TO FOLLOW UP WITH PCP, CARDIOLOGY ,PULMONOLOGY. ALL BELONGINGS PACKED AND CHECKED. LEFT THE UNIT VIA WHEELCHAIR 1230.
== END 2019-01-18 13:01 | disposition home or self-care (01) | DRG 177 ==
LOC: M.ERS 07:29 → M.2W 10:18 → M.TBA-ER 10:18 → M.2W 11:22
PROVIDERS: Family Medicine; ADMIT Family Medicine
DX: J15.6 Pneumonia due to other Gram-negative bacteria (principal); J96.01 Acute respiratory failure with hypoxia; I47.1 Supraventricular tachycardia; J45.901 Unspecified asthma with (acute) exacerbation; M10.9 Gout, unspecified; E03.9 Hypothyroidism, unspecified; E78.00 Pure hypercholesterolemia, unspecified; J44.9 Chronic obstructive pulmonary disease, unspecified; Z96.653 Presence of artificial knee joint, bilateral; K21.9 Gastro-esophageal reflux disease without esophagitis; N18.3 Chronic kidney disease, stage 3 (moderate); G89.29 Other chronic pain; M54.9 Dorsalgia, unspecified; K59.09 Other constipation; Z99.81 Dependence on supplemental oxygen; Z85.3 Personal history of malignant neoplasm of breast; Z90.49 Acquired absence of other specified parts of digestive tract; Z90.710 Acquired absence of both cervix and uterus; Z90.11 Acquired absence of right breast and nipple; Z79.1 Long term (current) use of non-steroidal anti-inflammatories (NSAID); Z79.899 Other long term (current) drug therapy; Z79.890 Hormone replacement therapy; Z88.1 Allergy status to other antibiotic agents; Z88.6 Allergy status to analgesic agent; Z88.8 Allergy status to other drugs, medicaments and biological substances; Z92.21 Personal history of antineoplastic chemotherapy; Z92.3 Personal history of irradiation

== ENCOUNTER → 2019-02-24 | Outpatient (CLI) | payer OTHER ==
[~2019-02-24] MED LIST changes: +AZITHROMYCIN 2250 MG PO; +CEFDINIR300 MG PO; +DOK PLUS TABLE1 EACH PO; +IPRAT-ALBUT 0.5-3 ML INH; +LEVAQUIN 750 M750 MG PO; +LEVOTHYROXINE25 MCG PO; +LOPRESSOR50 PO; +MOBIC15 MG PO; +PREDNISONE 20 M20 MG PO
== END ==
LOC: M.RAD 15:09
DX: M85.88 Other specified disorders of bone density and structure, other site (principal)

== ENCOUNTER → 2019-04-17 | Outpatient (CLI) | payer OTHER | LOC: M.RAD 08:44 | DX: J43.1 Panlobular emphysema (principal); J90 Pleural effusion, not elsewhere classified; R19.7 Diarrhea, unspecified; K90.9 Intestinal malabsorption, unspecified; Z88.1 Allergy status to other antibiotic agents; Z88.5 Allergy status to narcotic agent; Z88.8 Allergy status to other drugs, medicaments and biological substances ==

== ENCOUNTER → 2019-05-01 | Outpatient (CLI) | payer OTHER | LOC: M.CT 13:48 | DX: J44.9 Chronic obstructive pulmonary disease, unspecified (principal); R91.8 Other nonspecific abnormal finding of lung field; N20.0 Calculus of kidney ==

== ENCOUNTER → 2019-08-18 | Outpatient (CLI) | payer OTHER | LOC: M.CT 13:52 | DX: R91.1 Solitary pulmonary nodule (principal); J44.9 Chronic obstructive pulmonary disease, unspecified; I25.10 Atherosclerotic heart disease of native coronary artery without angina pectoris; J98.4 Other disorders of lung; N20.0 Calculus of kidney; Z90.49 Acquired absence of other specified parts of digestive tract; Z90.11 Acquired absence of right breast and nipple ==

== ENCOUNTER → 2019-11-18 | Outpatient (CLI) | payer OTHER | LOC: M.RAD 11:24 | DX: Z12.31 Encounter for screening mammogram for malignant neoplasm of breast (principal) ==

== ENCOUNTER → 2019-12-12 | Outpatient (CLI) | payer OTHER ==
[~2019-12-12] MED LIST changes: +I-CAPS WITH LU1 EACH PO; +MAGNESIUM250 M1 PO; +PERFOROMIS20 MCG/2 M INH
== END ==
LOC: M.RAD 10:27
PROVIDERS: ATTEND Internal Medicine
DX: M79.671 Pain in right foot (principal)

== ENCOUNTER → 2019-12-30 | Outpatient (CLI) | payer OTHER ==
--- NOTE | 2020-01-08 16:29 | PAINCON ---
[address] [address] PAIN MANAGEMENT CONSULTATION Name: HUMZA LAW Room: [facility] SteveElva.#: [id number] Admission: 12/30/19 Attend Phys: Laura Cochran MD Discharge: Date of : 38 Report #: [id number] THIS REPORT FOR: //name// cc: Lester Gerardo MD, David L. MD ~ THIS REPORT FOR: //name// CC: Lester Cochran DATE OF SERVICE: 12/30/2019 CHIEF COMPLAINT: Low back pain down into the right leg. HISTORY: The patient is an 79-year-old female who has been referred to the Pain Clinic for evaluation of leg pain. She has been experiencing pain, which she describes as burning, continuous sharp and has been more problematic over the last 3-4 months. She has undergone epidural steroid injections some years ago. She notes that they were helpful. She rates her pain as a 5/10 today. It can rise to a level 8/10. Denies any new bowel or bladder dysfunction. Pain improves when she is lying down. Pain is worse when she is sitting, standing and walking. ALLERGIES: MORPHINE, CIPRO, AUGMENTIN, CODEINE, VICODIN, TRAMADOL, AND GABAPENTIN. CURRENT MEDICATIONS: Anthony, Synthroid 0.05 mg, Vitamin D, allopurinol 100 mg, metoprolol 50 mg, omeprazole 20 mg, meloxicam 15 mg, Centrum Silver, Symbicort, Mevacor, aspirin 81 mg, oxybutynin 5 mg, and Singulair 10 mg. PAST MEDICAL HISTORY: Palpitations and supraventricular tachycardia. Hypothyroidism, dyslipidemia, gastroesophageal reflux, breast cancer diagnosed in 2001, chemotherapy and radiation treatment, left kidney carcinoma, gout, COPD, asthma, and lumbar radiculopathy. PAST SURGICAL HISTORY: Right foot surgery, tumor removed, bilateral carpal tunnel surgery, right total knee replacement in 2006, hysterectomy, appendectomy, tonsillectomy, right mastectomy 09/2018, and cataract surgery. SOCIAL HISTORY: The patient is retired, has not worked since 1994. REVIEW OF SYSTEMS: Generally good health. Occasional night sweats, fatigue, and wears glasses. Hearing loss, palpitations, shortness of breath when walking, chronic cough, COPD, thyroid disease, joint pain, muscle pain, back pain, difficulty walking, history of breast lump, numbness and tingling sensation, depression, slight insomnia, [place] [address] PAIN MANAGEMENT CONSULTATION Name: HUMZA LAW Room: [facility]#: [id number] Admission: 12/30/19 Attend Phys: Laura Cochran MD Discharge: Date of : 39 Report #: [id number] PAIN CLINIC ASSESSMENT AND PQRS: 1. The patient is not being treated for rheumatoid arthritis. 2. Height 5 feet 2 inches, weight 180 pounds, BMI is 33, blood pressure 145/61, heart rate 73, respiratory rate 18, room air saturation 94%, and temperature 97.8. 3. Pain intensity 5/10. 4. Fall history: The patient has not fallen in the last 3 months. 5. Blood thinner. The patient is not on a blood thinning medication. 6. Opioid. The patient is receiving opioids from her primary. 7. Risks assessment tool, low for opioid use. 8. Tobacco: The patient denies use of tobacco. 9. Alcohol: The patient uses alcoholic beverages on occasion, she drinks wine. PHYSICAL EXAMINATION: GENERAL: The patient is a well-developed, well-nourished white female. Appears her stated age. She is alert and oriented x 3. Her affect is appropriate. Speech is fluent. HEENT: Normocephalic, atraumatic. Extraocular eye muscles intact. Sclerae nonicteric. Mucous membranes are moist. The patient is wearing a mask. MUSCULOSKELETAL: Upper extremity muscle strength judged to be 4+/5 for the major muscle groups in the upper extremity. The patient without significant scoliosis, kyphosis or lordosis. She has pain and discomfort in the lower portion of her back with pain that radiates down in the right leg. We will consider an epidural steroid injection. LABORATORY DATA: MRI of the lumbar spine dated 12/07/2017. 1. L3-L4 disk narrowing and loss of disk signal at the L3-L4 level persist. Broad-based disk bulge is present, which extends into the neural foramen bilaterally. The disk bulges have progressed from the prior study. Marked hypertrophic facet changes are present bilaterally. Previously, there was a small fluid collection arising from the facets, although this appears to have resolved. 2. At L4-L5, a small central disk protrusion was present, which narrowed the AP diameter to 8 mm. Marked hypertrophic facet changes result in bilateral recess stenosis, which is greater on the left than right. Small amount of fluid is present in the facet joints. Extensive facet hypertrophy and osteophyte formation was present. The result is similar to the prior study, although the disk bulge and earlier central protrusion was more prominent. 3. L5-S1 diffuse disk bulging and loss of signal was unchanged. Hypertrophic facet changes are present bilaterally. AP diameter 10 mm with similar to previous study. RECOMMENDATIONS: We would like to thank you for letting us participate in her care. We hope she continues to improve. [place] [address] PAIN MANAGEMENT CONSULTATION Name: THANHHUMZA GELACIO Room: [facility]#: [id number] Admission: 12/30/19 Attend Phys: Laura Cochran MD Discharge: Date of : 38 Report #: [id number] Clinic, at which time, consideration of an epidural steroid injection will be undertaken. <ELECTRONICALLY SIGNED> By: Laura Cochran MD 01/08/20 1629 0902 1417N. Jonathan Cochran MD /nt
== END ==
LOC: M.PC 04:36
PROVIDERS: ATTEND Anesthesiology Pain Medicine
DX: M54.5 Low back pain (principal); M79.604 Pain in right leg; Z79.899 Other long term (current) drug therapy

== ENCOUNTER → 2020-01-13 | Outpatient (CLI) | payer OTHER ==
--- NOTE | 2020-01-14 11:31 | PAINCON ---
[address] [address] PAIN MANAGEMENT CONSULTATION Name: HUMZA LAW [id number] Admission: 01/13/20 Attend Phys: Laura Cochran MD Discharge: Date of : 38 Report #: [id number] THIS REPORT FOR: //name// cc: Lester Gerardo MD, David L. MD ~ THIS REPORT FOR: //name// CC: Lester Cochran DATE OF SERVICE: 01/13/2020 CHIEF COMPLAINT: Low back pain with pain radiating down into my right leg. HISTORY: The patient is an 79-year-old female who has been referred to the pain clinic because of pain and discomfort. She has been experiencing pain, which she describes as burning, continuous, sharp, and shooting over the last 3 months. She has undergone epidural steroid injections some years ago. She returns today because of the pain and rates it as a 10/10. She denies any new bowel or bladder dysfunction. She would like to proceed with an injection. ALLERGIES: MORPHINE, CIPRO, AUGMENTIN, CODEINE, VICODIN, TRAMADOL, AND GABAPENTIN. PAIN CLINIC ASSESSMENT/PQRS: 1. The patient is not being treated for rheumatoid arthritis. She does have some osteoarthritic changes in the lower portion of her spine. 2. Height 5 feet 2 inches, weight 179 pounds, BMI is 32. 3. Pain intensity, 10/10. 4. Blood pressure 143/70, heart rate 73, respiratory rate 16, room air saturation 93%, temperature 98.6. 5. Fall history: The patient has not fallen in the last 3 months. 6. Blood thinner. The patient is not on a blood thinning medication. 7. Opioids. The patient received medication from her primary. 8. Risk assessment tool, low for opioid use. 9. Tobacco: The patient denies use of tobacco. 10. Alcohol: The patient uses alcoholic beverages on occasion. PHYSICAL EXAMINATION: GENERAL: The patient is a well-developed, well-nourished white female. Appears her stated age. She is alert and oriented x 3. Her affect is appropriate. Speech is fluent. HEENT: Normocephalic, atraumatic. Extraocular eye muscles intact. Sclerae nonicteric. Mucous membranes are moist. The patient is wearing a mask. EXTREMITIES: Upper extremity muscle strength judged to be 4+/5 [place] [id number] PAIN MANAGEMENT CONSULTATION Name: HUMZA LAW Room: [facility]#: [id number] Admission: 01/13/20 Attend Phys: Laura Cochran MD Discharge: Date of : 38 Report #: [id number] muscle groups in the upper extremity. HEART: Regular rate. ABDOMEN: Nontender. MUSCULOSKELETAL: Without significant scoliosis, kyphosis, or lordosis. Has some pain and discomfort in lower portion of her back with pain that is radiating down into the right leg with numbness, tingling, and weakness. IMPRESSION: Lumbar radiculopathy. RECOMMENDATIONS: We discussed treatment options with the patient. Risks and benefits of an epidural steroid injection were discussed. Possible complications of the procedure were reviewed. They include but are not limited to infection, worsening of pain, no improvement in pain, nerve damage, bleeding, spinal headache, and the patient elects to proceed. PROCEDURE NOTE: The patient was taken to the procedure area. She was then assisted in getting on the examination table. Her back was sterilely prepped with a Betadine solution. A 0.25% bupivacaine was infiltrated. A 17-gauge Tuohy with loss of resistance technique was used to gain access to the epidural space. There was an increased amount of discomfort was noted in the right leg with some radiation down into the right leg. The needle was then repositioned and a more midline approach was taken. The needle had been withdrawn slightly outside the area of the epidural space. A total of 40 mg triamcinolone and 80 mg Depo-Medrol was injected in this area. The patient was then taken to the procedure area. She remained in the area for an appropriate amount of time. Approximately 18 seconds of fluoroscopy time was used. The patient will call us if she has any concerns. We would like to thank you for letting us participate in her care. We hope she continues to improve. <ELECTRONICALLY SIGNED> By: Laura Cochran MD 01/14/20 1131 1501 2346N. Jonathan Cochran MD /KARI
== END | disposition home or self-care (01) ==
LOC: M.PC 04:48
PROVIDERS: ATTEND Anesthesiology Pain Medicine
DX: M54.16 Radiculopathy, lumbar region (principal); G89.29 Other chronic pain; Z98.890 Other specified postprocedural states; Z79.899 Other long term (current) drug therapy; Z88.8 Allergy status to other drugs, medicaments and biological substances; Z85.3 Personal history of malignant neoplasm of breast

== ENCOUNTER → 2020-07-15 | Outpatient (CLI) | payer OTHER ==
[~2020-07-15] MED LIST changes: +ARIMIDEX1 MG PO; +HYDROCODON-ACE1 EAC7 PO; +VITAMIN D3250 MC2 PO
== END | disposition home or self-care (01) ==
LOC: M.PC 09:49
PROVIDERS: ATTEND Anesthesiology Pain Medicine
DX: M54.16 Radiculopathy, lumbar region (principal); M54.41 Lumbago with sciatica, right side; E03.9 Hypothyroidism, unspecified; M10.9 Gout, unspecified; K21.9 Gastro-esophageal reflux disease without esophagitis; E78.00 Pure hypercholesterolemia, unspecified; J44.9 Chronic obstructive pulmonary disease, unspecified; Z87.891 Personal history of nicotine dependence; G89.29 Other chronic pain; N18.32 Chronic kidney disease, stage 3b; Z85.3 Personal history of malignant neoplasm of breast; Z86.79 Personal history of other diseases of the circulatory system; Z90.710 Acquired absence of both cervix and uterus; Z90.11 Acquired absence of right breast and nipple; Z96.652 Presence of left artificial knee joint; Z88.5 Allergy status to narcotic agent; Z88.0 Allergy status to penicillin; Z88.8 Allergy status to other drugs, medicaments and biological substances; Z90.49 Acquired absence of other specified parts of digestive tract; Z87.09 Personal history of other diseases of the respiratory system

== ENCOUNTER → 2020-11-15 | Outpatient (CLI) | payer OTHER ==
[~2020-11-15] MED LIST changes: +FREESTYLE FREE1 EAC1 MISCELL; +LEVO-T50 MCG PO; +MELATONIN5 MG PO; +PROVENTIL HFA6.7 G1 NEB
== END ==
LOC: M.RAD 08:48
PROVIDERS: ATTEND Internal Medicine Hematology & Oncology
DX: Z12.31 Encounter for screening mammogram for malignant neoplasm of breast (principal)

== ENCOUNTER → 2020-12-09 | Outpatient (CLI) | payer OTHER | END | disposition home or self-care (01) | LOC: M.PC 11:10 | PROVIDERS: ATTEND Anesthesiology Pain Medicine | DX: M54.16 Radiculopathy, lumbar region (principal); G89.29 Other chronic pain; J44.9 Chronic obstructive pulmonary disease, unspecified; N18.32 Chronic kidney disease, stage 3b; E03.9 Hypothyroidism, unspecified; M10.9 Gout, unspecified; K21.9 Gastro-esophageal reflux disease without esophagitis; Z98.890 Other specified postprocedural states; Z79.899 Other long term (current) drug therapy; Z85.3 Personal history of malignant neoplasm of breast; Z90.49 Acquired absence of other specified parts of digestive tract; Z90.710 Acquired absence of both cervix and uterus; Z88.8 Allergy status to other drugs, medicaments and biological substances ==

== ENCOUNTER → 2021-02-22 | Outpatient (CLI) | payer OTHER | LOC: M.RAD 09:34 | PROVIDERS: ATTEND Internal Medicine Hematology & Oncology | DX: M81.0 Age-related osteoporosis without current pathological fracture (principal) ==

== ENCOUNTER → 2021-05-11 | Outpatient (CLI) | payer OTHER | LOC: M.LAB 09:06 | PROVIDERS: ATTEND Internal Medicine Gastroenterology | DX: Z01.812 Encounter for preprocedural laboratory examination (principal); Z20.822 Contact with and (suspected) exposure to COVID-19 ==

== ENCOUNTER → 2021-05-23 | Outpatient (CLI) | payer OTHER | LOC: M.NUC 06:59 | PROVIDERS: ATTEND Internal Medicine Gastroenterology | DX: R68.81 Early satiety (principal) ==

== ENCOUNTER → 2021-06-09 | Outpatient (CLI) | payer OTHER | LOC: M.RAD 09:32 | PROVIDERS: ATTEND Internal Medicine | DX: M19.041 Primary osteoarthritis, right hand (principal) ==

== ENCOUNTER → 2021-06-10 | Outpatient (CLI) | payer OTHER ==
[2021-06-10 09:55] LABS: ABSOLUTE BASOPHILS 0.1 thou/uL (0.0-0.2); ABSOLUTE EOSINOPHILS 0.2 thou/uL (0.0-0.7); ABSOLUTE LYMPHOCYTES 1.6 thou/uL (0.8-5.3); ABSOLUTE MONOCYTES 0.9 thou/uL (0.0-1.2); ABSOLUTE NEUTROPHILS 5.9 thou/uL (1.6-8.1); BASOPHILS 1.1 %; EOSINOPHILS 2.1 %; HEMATOCRIT 39.9 % (37.0-47.0); HEMOGLOBIN 13.1 gm/dL (12.0-15.0); LYMPHOCYTES 18.2 %; MCH 30.5 pg (26.0-34.0); MCV 92.4 fL (80.0-100.0); MONOCYTES 10.2 %; NUCLEATED RBCS 0 /100WBC; PLATELET COUNT* 411 thou/uL (150-400); POLYS 68.4 %; RBC 4.31 mil/uL (4.20-5.00); RDW-CV 15.3 % (10.5-14.5); WBC 8.7 thou/uL (4.0-11.0)
[2021-06-10 10:08] LABS: ALBUMIN 3.2 g/dL (3.4-5.0); CALCIUM 9.6 mg/dL (8.5-10.1); CREATININE 1.1 mg/dL (0.6-1.3); POTASSIUM 4.5 mmol/L (3.5-5.1); TOTAL BILIRUBIN 0.4 mg/dL (<0.1-1.0)
== END ==
LOC: M.LAB 09:33 → M.CT 11:00
PROVIDERS: ATTEND Internal Medicine Gastroenterology
DX: N28.1 Cyst of kidney, acquired (principal); K80.50 Calculus of bile duct without cholangitis or cholecystitis without obstruction; J98.11 Atelectasis; J18.8 Other pneumonia, unspecified organism; R68.81 Early satiety; Z90.49 Acquired absence of other specified parts of digestive tract

== ENCOUNTER → 2021-07-28 | Outpatient (CLI) | payer OTHER ==
--- NOTE | 2021-08-10 09:53 | TST ---
[place] [address] TREADMILL STRESS TEST Name: THANHHUMZAWILLY BRIZUELA Room: [facility]#: [id number] Admission: 07/28/21 Attend Phys: Carlos Frederick, Discharge: Date of : 38 Date of Service: 08/09/21 1547 Report #: [id number] THIS REPORT FOR: cc: Cory Ramos MD, Meng MD Holkins, John M. MD [facility] ~ cc: Carlos Frederick DO DATE OF SERVICE: 07/28/2021 TREADMILL EXERCISE STRESS TEST Resting 12-lead electrocardiogram demonstrates sinus rhythm and is within normal limits. The patient exercised for 2 minutes on a Charli protocol, stopping because of fatigue and shortness of breath. No chest pain was described. Resting heart rate was 59 with a peak heart rate of 99, ____ in the context of limited functional capacity. Resting blood pressure was 148/62 with a peak blood pressure 157/45. There were no ischemic ST-T alterations noted during or post-exercise. There were no supraventricular or ventricular arrhythmias noted. IMPRESSION: 1. Indeterminate treadmill exercise test for myocardial ischemia by virtue of limited functional capacity and blunted peak heart rate response. 2. No chest pain provoked by exertion. 3. Blunted peak heart rate response to exercise in the context of limited functional capacity. 4. Mild but appropriate increase in systolic blood pressure with exercise. 5. No ischemic ST-T alterations noted during or post-exercise. 6. No arrhythmias noted. 7. Reduced level of fitness. <ELECTRONICALLY SIGNED> By: Darren Carroll MD, FACC 08/10/21 0953 1547 1941 Darren Carroll MD, FACC /nt
--- NOTE | 2021-08-10 19:29 | PF ---
[address] [address] PULMONARY FUNCTION REPORT Name: HUMZA LAW GELACIO Room: [facility]#: [id number] Admission: 07/28/21 Attend Phys: Carlos Frederick DO Discharge: Date of : 38 Report #: [id number] THIS REPORT FOR: cc: Cory Ramos MD, Meng MD Pervez, Adeel MD ~ DATE OF VISIT: 07/28/2021 INTERPRETATION: The FEV1/FVC ratio is markedly decreased to 43%. The FVC is normal at 91% with the FEV1 is decreased to 53%. The FEF 25-75 is decreased to 14% only after the administration of bronchodilator, there is a 12% increase in FVC and a 25% increase in FEV1. The increase in FVC exceed 200 mL. The patient's post-bronchodilator FEV1 is 1.14 liters. The flow volume loop is concave upwards. The total lung capacity is normal, but close to the upper limit of normal range at 111% and the residual volume is elevated to 138%. The DLCO as adjusted for hemoglobin is 55%. IMPRESSION: 1. There is marked obstruction present by FEV1 criteria, obstruction is moderate. However, there is severe reduction in the FEV1/FVC ratio and therefore, the patient's underlying obstructive lung disease may be more severe than evidenced by the FEV1 criteria alone. There is evidence of reversibility. 2. There is elevation in residual volume on lung volumes secondary to hyperinflation from underlying obstruction. 3. The DLCO as adjusted for hemoglobin is decreased to 55%. <ELECTRONICALLY SIGNED> By: Melquiades Michaels MD 08/10/211928 1630 Atevin Michaels MD /nt
== END ==
LOC: M.LAB 07-21 14:35 → M.MRI 12:30 → M.LAB 12:30 → M.MRI 13:01 → M.PUL 14:30 → M.CRD 15:00
PROVIDERS: ATTEND Internal Medicine Gastroenterology
DX: K76.89 Other specified diseases of liver (principal); K80.50 Calculus of bile duct without cholangitis or cholecystitis without obstruction; N28.1 Cyst of kidney, acquired; N83.292 Other ovarian cyst, left side; R68.81 Early satiety; R00.2 Palpitations; Z90.49 Acquired absence of other specified parts of digestive tract